=== PATIENT | male | born 1940 | race Two or more races ===

== ENCOUNTER → 2017-02-03 | Day surgery (SDC) | payer MEDICARE, MEDICAID ==
[~2017-02-03] VITALS: Ht 162.6 cm; Wt 97.7 kg
[~2017-02-03] MED LIST: ALPR1TAB2 PO; ANGIOMAX 250 MG VIAL IV ONE; CAR3125T; CARI-316 PO; CLOP75TA28 PO; DOCU-94; ESZO3TAB53; EZET10TA38; FAMOTIDINE (10MG/ML) 2ML VL IV ONE; FEBU40TA PO; FURO20TA3 PO; GABA-498; IODIXANOL 320MG/ML 100ML BTL IV ONE; LEVO100T81; LIDOCAINE 2%HCL (LOCAL ANESTH.) INJ 20ML MDV ONE; LISI-646 PO; METF500T PO; METO5TAB2 PO; MIDAZOLAM HCL 1MG/1ML-2 ML VIAL ONE; POT20T PO; SIMV-13 PO; SODIUM CHL 0.9% 0 ML ONE; TAMS0.4C36 PO; TEMA15CA91 PO; TORS1TAB10 PO; TRAM50TA2 PO; VITACAP7; diphenhdrAMINE HCL 50 MG/1 ML VL ONE; fentaNYL CITRATE 100 MCG/2 ML VL ONE; methylPREDNISolone SOD SUCC 125 MG/2 ML VL ONE
== END | disposition home or self-care (01) ==
LOC: EDUNIT# 11:07 → CATH 11:07
PROVIDERS: ATTEND Internal Medicine
DX: I24.0 Acute coronary thrombosis not resulting in myocardial infarction (principal); R94.39 Abnormal result of other cardiovascular function study; Z88.1 Allergy status to other antibiotic agents; Z88.5 Allergy status to narcotic agent; Z88.6 Allergy status to analgesic agent; I10 Essential (primary) hypertension; E78.5 Hyperlipidemia, unspecified; I25.2 Old myocardial infarction; Z95.1 Presence of aortocoronary bypass graft
CPT/HCPCS: 93458; C1760; C1894; J1200; J1644; J2250; J2930; J3010; J3490; J7030; Q9967; 99152; 99153